=== PATIENT | female | born 1940 | race Caucasian/White ===

== ENCOUNTER 2018-02-19 14:24 | Inpatient (IN) | payer MEDICARE ==
[2018-02-19] MEDS ORDERED: ASPIRIN 81 MG TABLET, CHEWABLE PO ONE (14:44)
--- NOTE | 2018-02-19 15:03 | ER Document Report ---
ED Cardiac - General Mode of Arrival: Medic Information source: Patient TRAVEL OUTSIDE OF THE [place] IN LAST 30 DAYS: No <PEYTON MELENDEZ - Last Filed: 02/19/18 19:12> <DIANE GASTELUM - Last Filed: 02/19/18 20:26> - General Chief Complaint: Arrhythmia Stated Complaint: CHEST PAIN Time Seen by Provider: 02/19/18 14:52 Notes: 77 y.o female presents to the ED with SOB upon exertion and pedal edema. She reports that she went to the doctor in [place] for SOB and then went to Dr. Conley for an EKG when she was sent directly here for an abnormal EKG. Pt reports that she gets SOB regularly due to her smoking hx but since she quit smoking in 2003 her breathing has improved and has not been this bad in a while. She denies any CP but notes some tightness when lying flat or upon exertion. Pt denies needing to use oxygen at home. She denies any hx of Afib or CHF. She denies any previous stress test or heart catheterizations. (PEYTON MELENDEZ) - Related Data Allergies/Adverse Reactions: No Known Allergies Allergy (Unverified 02/19/18 18:13) Past Medical History - General Information source: Patient - Social History Smoking Status: Former Smoker Chew tobacco use (# tins/day): No Frequency of alcohol use: None Drug Abuse: None <PEYTON MELENDEZ - Last Filed: 02/19/18 19:12> - Social History Family History: CAD <DIANE GASTELUM - Last Filed: 02/19/18 20:26> Review of Systems - Review of Systems Constitutional: No symptoms reported EENT: No symptoms reported Cardiovascular: See HPI, Edema - bilateral pedal edema, Other - chest tightness. denies: Chest pain Respiratory: See HPI, Short of breath Gastrointestinal: No symptoms reported Genitourinary: No symptoms reported Female Genitourinary: No symptoms reported Musculoskeletal: No symptoms reported Skin: No symptoms reported Hematologic/Lymphatic: No symptoms reported Neurological/Psychological: No symptoms reported -: Yes All other systems reviewed and negative <PEYTON MELENDEZ - Last Filed: 02/19/18 19:12> Physical Exam <PEYTON MELENDEZ - Last Filed: 02/19/18 19:12> <DIANE GASTELUM - Last Filed: 02/19/18 20:26> - Vital signs Vitals: Temp Pulse Resp BP Pulse Ox 97.5 F 126 H 17 154/97 H 92 02/19/18 14:38 02/19/18 14:38 02/19/18 14:38 02/19/18 14:38 02/19/18 14:38 - Notes Notes: PHYSICAL EXAM GENERAL: Alert, interacts well. HEAD: Normocephalic, atraumatic. EYES: Pupils equal, round, and reactive to light. Extraocular movements intact. ENT: Oral mucosa moist, tongue midline. NECK: Full range of motion. Supple. Trachea midline. LUNGS: Slightly decreased air movement with rales. Tachypnic, appears SOB. No wheezes or rhonchi. HEART: tachycardic rate and irregular rhythm. No murmurs, gallops, or rubs. 1+ pitting edema bilaterally to 2 inches above the ankle. ABDOMEN: Soft, non-tender. Non-distended. Bowel sounds present in all 4 quadrants. No guarding, rebound, or rigidity. EXTREMITIES: Moves all 4 extremities spontaneously. No edema, radial and dorsalis pedis pulses 2/4 bilaterally. No cyanosis. NEUROLOGICAL: Alert and oriented x3. Normal speech. PSYCH: Normal affect, normal mood. (PEYTON MELENDEZ) Course - Laboratory Result Diagrams: 02/19/18 15:18 02/19/18 15:18 <PEYTON MELENDEZ - Last Filed: 02/19/18 19:12> - Laboratory Result Diagrams: 02/19/18 15:18 02/19/18 15:18 <DIANE GASTELUM - Last Filed: 02/19/18 20:26> - Re-evaluation Re-evalutation: 02/19/18 20:22 CBC unremarkable, INR slightly prolonged at 1.07, venous blood gas does not show any acidosis, CMP grossly unremarkable, troponin negative at 0.0280, proBNP elevated at 1800 and is in her lungs however chest x-ray does not show any infiltrate or pulmonary edema. I was concerned for possible pulmonary embolism. CTA of the chest was performed and does not show any pulmonary embolism. At this point I am not certain why the patient has new onset atrial fibrillation and shortness of breath and continuing hypoxia when she is off of oxygen which she has never previously needed. Now that I know she does not have a pulmonary embolism we will give Cardizem to try and control her rate since this does not appear to be a compensatory mechanism but may be triggered by the new onset congestive heart failure. Initial dose will be ordered at 20 mg IV. Discussed case with Dr. Prater who agrees to accept the patient to his service for hypoxia, shortness of breath, new onset atrial fibrillation and congestive heart failure. 02/19/18 20:25 Breathing treatment did not improve oxygenation. (DIANE GASTELUM) - Vital Signs Vital signs: Temp Pulse Resp BP Pulse Ox 98.1 F 126 H 25 H 161/108 H 93 02/19/18 15:15 02/19/18 14:38 02/19/18 20:01 02/19/18 20:01 02/19/18 20:00 - Laboratory Laboratory results interpreted by me: 02/19/18 02/19/18 15:18 15:18 Glucose 128 H Direct Bilirubin 0.5 H NT-Pro-B Natriuret Pep 1810 H - EKG Interpretation by Me Additional EKG results interpreted by me: 02/19/18 20:23 EKG shows atrial fibrillation with rapid ventricular response rate of 127, there are diffuse T-wave inversions 1, 2, aVF, lead III, V3 through V6 with associated ST segment depressions in V3 through V6, there is no ST segment elevations, slightly slow R-wave progression per my interpretation. 02/19/18 20:25 Repeat EKG shows atrial fibrillation at a rate of 111, continued T-wave inversions and ST segment depressions unchanged from prior EKG, no ST segment elevations, T-wave inversions are present in lead I, 2, 3, aVF, V2 through V6 per my interpretation. (DIANE GASTELUM) Critical Care Note - Critical Care Note Total time excluding time spent on procedures (mins): 45 <DIANE GASTELUM - Last Filed: 02/19/18 20:26> Discharge <PEYTON MELENDEZ - Last Filed: 02/19/18 19:12> - Discharge Admitting Provider: Hospitalist - [facility] Admitted: [facility] <DIANE GASTELUM - Last Filed: 02/19/18 20:26> - Discharge Clinical Impression: New onset atrial fibrillation, Hypoxia Congestive heart failure Qualifiers: Heart failure type: unspecified Heart failure chronicity: acute Qualified Code( s): I50.9 - Heart failure, unspecified Disposition: ADMITTED INPATIENT Referrals: JERZY MO FNP-C [Primary Care Provider] - Follow up as needed Scribe Attestation: 02/19/18 20:26 I personally performed the services described in the documentation, reviewed and edited the documentation which was dictated to the scribe in my presence, and it accurately records my words and actions. (DIANE GASTELUM) Scribe Documentation - Scribe Written by Shelby:: Shelby Ferrara [id number] 02/19/18 acting as scribe for :: Alley <PEYTON MELENDEZ - Last Filed: 02/19/18 19:12>
--- NOTE | 2018-02-19 15:16 | RADIOLOGY REPORT (SQ) ---
EXAM DESCRIPTION: CHEST SINGLE VIEW COMPLETED DATE/TIME: 02/19/2018 3:07 pm REASON FOR STUDY: cp COMPARISON: None. EXAM PARAMETERS: NUMBER OF VIEWS: One view. TECHNIQUE: Single frontal radiographic view of the chest acquired. RADIATION DOSE: NA LIMITATIONS: None. FINDINGS: LUNGS AND PLEURA: No opacities, masses or pneumothorax. No pleural effusion. MEDIASTINUM AND HILAR STRUCTURES: No masses. Contour normal. HEART AND VASCULAR STRUCTURES: Moderate to marked cardiomegaly. BONES: Osteoporotic. HARDWARE: None in the chest. OTHER: No other significant finding. IMPRESSION: Moderate to marked cardiomegaly without pleural effusions or pulmonary edema. TECHNICAL DOCUMENTATION: JOB ID: [id number] [employer]- All Rights Reserved Reading location - IP/workstation name: [email or web address]
[2018-02-19 15:35] LABS: ABSOLUTE LYMPHOCYTES (AUTO) 1.2 10^3/uL (0.5-4.7); ABSOLUTE MONOCYTES (AUTO) 0.5 10^3/uL (0.1-1.4); ABSOLUTE NEUT (AUTO) 4.5 10^3/uL (1.7-8.2); BASOPHILS % (AUTO) 0.4 % (0-2); EOSINOPHILS % (AUTO) 0.2 % (0-6); HEMATOCRIT 36.4 % (36.0-47.0); HEMOGLOBIN 12.5 g/dL (12.0-15.5); LYMPHOCYTES % (AUTO) 18.9 % (13-45); MEAN CORPUSCULAR HGB CONC 34.3 g/dL (32.0-36.0); MEAN CORPUSCULAR VOLUME 93 fl (80-97); MONOCYTES % (AUTO) 8.1 % (3-13); PLATELET COUNT 265 10^3/uL (150-450); RED CELL DISTRIBUTION WIDTH 13.6 % (11.5-14.0); SEGMENTED NEUTROPHILS % (AUTO) 72.4 % (42-78); TOTAL CELLS COUNTED % (AUTO) 100 %; VENOUS BLOOD HCO3 27.6 mmol/L (20-32); VENOUS BLOOD PCO2 46.5 mmHg (35-63); VENOUS BLOOD PH 7.39 (7.30-7.42); WHITE BLOOD COUNT 6.3 10^3/uL (4.0-10.5)
[2018-02-19 15:43] LABS: INTERNATIONAL RATION (INR) 1.07; PARTIAL THROMBOPLASTIN TIME 31.5 SEC (23.5-35.8); PROTHROMBIN TIME 14.4 SEC (11.4-15.4)
[2018-02-19 15:54] LABS: ALANINE AMINOTRANSFERASE 31 U/L (9-52); ALKALINE PHOSPHATASE 77 U/L (38-126); ANION GAP 13 (5-19); ASPARTATE AMINO TRANSFERASE 28 U/L (14-36); BILIRUBIN,DIRECT 0.5 mg/dL (0.0-0.4); BILIRUBIN,TOTAL 1.2 mg/dL (0.2-1.3); BLOOD UREA NITROGEN 12 mg/dL (7-20); CALCIUM 9.2 mg/dL (8.4-10.2); CARBON DIOXIDE 26 mmol/L (22-30); CHLORIDE 103 mmol/L (98-107); CREATINE KINASE 43 U/L (30-135); GLUCOSE 128 mg/dL (75-110); POTASSIUM 3.9 mmol/L (3.6-5.0)
[2018-02-19 16:07] LABS: CREATINE KINASE MB 1.94 ng/mL (<4.55); TROPONIN I 0.02 ng/mL
--- NOTE | 2018-02-19 18:05 | EKG REPORT ---
SEVERITY:- ABNORMAL ECG - ATRIAL FIBRILLATION, V-RATE 99-153 REPOL ABNRM SUGGESTS ISCHEMIA, DIFFUSE LEADS : Confirmed by: Patrick Garrett 19-Feb-2018 18:05:07
--- NOTE | 2018-02-19 18:05 | EKG REPORT ---
SEVERITY:- ABNORMAL ECG - ATRIAL FIBRILLATION REPOL ABNRM SUGGESTS ISCHEMIA, ANT-LAT LEADS : Confirmed by: Patrick Garrett 19-Feb-2018 18:04:58
--- NOTE | 2018-02-19 18:30 | RADIOLOGY REPORT (SQ) ---
EXAM DESCRIPTION: CTA CHEST COMPLETED DATE/TIME: 02/19/2018 6:09 pm REASON FOR STUDY: hypoxia, SOB, tachycardia COMPARISON: Chest x-ray 02/19/2018 TECHNIQUE: CT scan of the chest performed using helical scanning technique with dynamic intravenous contrast injection. Images reviewed with lung, soft tissue and bone windows. Reconstructed coronal and sagittal MPR images reviewed. Additional 3 dimensional post-processing performed to develop Maximal Intensity Projection images (WI P). All images stored on PACS. All CT scanners at this facility use dose modulation, iterative reconstruction, and/or weight based d osing when appropriate to reduce radiation dose to as low as reasonably achievable (ALARA). [facility]: Dose Right [facility]: CareDose [facility]: Dose Right [facility]: Teradose 4D [facility]: [place] CONTRAST TYPE AND DOSE: contrast/concentration: Isovue mg/ml; Total Contrast Delivered: 115.9 ml; T otal Saline Delivered: 100.1 ml Contrast bolus optimized for the pulmonary arteries. Not diagnostic for the aorta. RENAL FUNCTION: BUN 12 creatinine 0.64 RADIATION DOSE: CT Rad equipment meets quality standard of care and radiation dose reduction techniq ues were employed. CTDIvol: 19.8 - 29.8 mGy. DLP: 810 mGy-cm. . LIMITATIONS: None. FINDINGS: LUNGS AND PLEURA: Subsegmental atelectasis in the lung bases, left more than right. AORTA AND GREAT VESSELS: No aneurysm. Contrast bolus not optimized for the aorta. HEART: No pericardial effusion. Moderate to marked coronary artery calcifications. PULMONARY ARTERIES: No emboli visualized in the main pulmonary arteries or the segmental branches. HILAR AND MEDIASTINAL STRUCTURES: There are multiple nonspecific mediastinal lymph nodes. HARDWARE: None in the chest. UPPER ABDOMEN: No significant findings. Limited exam. THYROID AND OTHER SOFT TISSUES: No masses. No adenopathy. BONES: Compression changes of uncertain age in the mid and lower thoracic spine. 3D MIPS: Confirm above findings. OTHER: No other significant finding. IMPRESSION: 1. There is no evidence of pulmonary emboli. 2. Nonspecific mediastinal lymph nodes. 3. Compression changes of uncertain age in the mid and lower thoracic spine. COMMENT: Quality ID # [id number]: Final reports with documentation of one or more dose reduction techniques (e.g., Automated exposure control, adjustment of the mA and/or kV according to patient size, use of iterative reconstruction technique) TECHNICAL DOCUMENTATION: JOB ID: [id number] [employer]- All Rights Reserved Reading location - IP/workstation name: [email or web address]
[2018-02-19] MEDS ORDERED: ALBUTEROL SULFATE 0.083% NEB 2.5 MG/3 ML AMPUL NEB ONE (19:12)
[2018-02-19] MEDS ORDERED: DILTIAZEM HCL INJ 25 MG/5 ML VIAL IV ONE (19:55)
[2018-02-19] MEDS ORDERED: IPRATROPIUM BROMIDE 0.02% NEB 0.5 MG/2.5 ML AMPUL NEB SCH (20:30)
[2018-02-19 21:35] LABS: INTERNATIONAL RATION (INR) 1.11; PROTHROMBIN TIME 14.9 SEC (11.4-15.4)
[2018-02-19] MEDS ORDERED: CHLORPHENIRAMINE MALEATE 4 MG TABLET PO ONE (22:00)
[2018-02-19] MEDS ORDERED: ATORVASTATIN CALCIUM 40 MG TABLET PO SCH (22:00)
--- NOTE | 2018-02-19 22:40 | PDOC H&P ---
History of Present Illness Admission Date/PCP: 02/19/18 20:30 DONNY ESCOTO-C Patient complains of: Shortness of breath History of Present Illness: PAN COLON is a 77 year old female with a remote history of 45 years of tobacco and suspected COPD. Patient presents with several weeks of shortness of breath with exertion and lower extremity edema. Prompting to seek evaluation with primary care she is referred to sr. strategic sourcing manager Dr. Rosado. She is found to be in A. fib with RVR and referred to the emergency room for treatment she receives IV Cardizem, denies chest pain shortness of breath nausea vomiting and lying flat. She denies new medication, alcohol, heat or cold intolerance, sudden onset of cough, palpitations or chest pain. Past Medical History Medical History: None Pulmonary Medical History: Reports: Bronchitis, Chronic Obstructive Pulmonary Disease (COPD) Past Surgical History Past Surgical History: Reports: Cholecystectomy Social History Information Source: Patient Lives with: Alone Smoking Status: Former Smoker Number of Years Smokin Frequency of Alcohol Use: None Drugs: None - Advance Directive Resuscitation Status: Full Code Family History Family History: CAD Parental Family History Reviewed: Yes Children Family History Reviewed: Yes Sibling(s) Family History Reviewed.: Yes Medication/Allergy Home Medications: No Home Medications 02/19/18 Allergies/Adverse Reactions: No Known Allergies Allergy (Unverified 02/19/18 18:13) Review of Systems Constitutional: ABSENT: chills, fever(s), headache(s), weight gain, weight loss Eyes: ABSENT: visual disturbances Ears: ABSENT: hearing changes Cardiovascular: ABSENT: chest pain, dyspnea on exertion, edema, orthropnea, palpitations Respiratory: PRESENT: as per HPI, cough, dyspnea. ABSENT: hemoptysis, sputum Gastrointestinal: PRESENT: constipation. ABSENT: abdominal pain, diarrhea, hematemesis, hematochezia, nausea, vomiting Genitourinary: ABSENT: dysuria, hematuria Musculoskeletal: ABSENT: joint swelling Integumentary: ABSENT: rash, wounds Neurological: ABSENT: abnormal gait, abnormal speech, confusion, dizziness, focal weakness, syncope Psychiatric: ABSENT: anxiety, depression, homidical ideation, suicidal ideation Endocrine: ABSENT: cold intolerance, heat intolerance, polydipsia, polyuria Hematologic/Lymphatic: ABSENT: easy bleeding, easy bruising Physical Exam Vital Signs: Temp Pulse Resp BP Pulse Ox 97.6 F 119 H 22 H 133/83 H 91 L 02/19/18 22:10 02/19/18 22:10 02/19/18 22:10 02/19/18 22:10 02/19/18 22:10 Intake & Output 02/18/18 02/19/18 02/20/18 11:59 11:59 11:59 Weight 98.7 kg General appearance: PRESENT: no acute distress, well-developed, well-nourished Head exam: PRESENT: atraumatic, normocephalic Eye exam: PRESENT: conjunctiva pink, EOMI, PERRLA. ABSENT: scleral icterus Ear exam: PRESENT: normal external ear exam Mouth exam: PRESENT: moist, tongue midline Neck exam: ABSENT: carotid bruit, JVD, lymphadenopathy, thyromegaly Respiratory exam: PRESENT: clear to auscultation radha, crackles, prolonged expiratory phas, unlabored. ABSENT: rales, rhonchi, wheezes Cardiovascular exam: PRESENT: irregular rhythm, tachycardia. ABSENT: diastolic murmur, rubs, systolic murmur Pulses: PRESENT: normal dorsalis pedis pul Vascular exam: PRESENT: normal capillary refill GI/Abdominal exam: PRESENT: normal bowel sounds, soft. ABSENT: distended, guarding, mass, organolmegaly, rebound, tenderness Rectal exam: PRESENT: deferred Extremities exam: PRESENT: full ROM, +1 edema. ABSENT: calf tenderness, clubbing, pedal edema Neurological exam: PRESENT: alert, awake, oriented to person, oriented to place , oriented to time, oriented to situation, CN II-XII grossly intact. ABSENT: motor sensory deficit Psychiatric exam: PRESENT: appropriate affect, normal mood. ABSENT: homicidal ideation, suicidal ideation Skin exam: PRESENT: dry, intact, warm. ABSENT: cyanosis, rash Results Impressions: Chest X-Ray 02/19/18 14:44 IMPRESSION: Moderate to marked cardiomegaly without pleural effusions or pulmonary edema. Chest/Abdomen CTA 02/19/18 15:57 IMPRESSION: 1. There is no evidence of pulmonary emboli. 2. Nonspecific mediastinal lymph nodes. 3. Compression changes of uncertain age in the mid and lower thoracic spine. Assessment & Plan - Diagnosis (1) New onset atrial fibrillation Is this a current diagnosis for this admission?: Yes Plan: IMCU admission, IV Cardizem, full dose Lovenox, follow-up CBC, TSH, cardiac enzymes and echocardiogram (2) COPD (chronic obstructive pulmonary disease) Is this a current diagnosis for this admission?: Yes Plan: Xopenex and Atrovent, supplemental oxygen (3) Congestive heart failure Qualifiers: Heart failure type: unspecified Heart failure chronicity: acute Qualified Code(s): I50.9 - Heart failure, unspecified Is this a current diagnosis for this admission?: Yes Plan: Secondary to #1, 2D echo - Time Time Spent: 30 to 50 Minutes - Inpatient Certification Medical Necessity: Need Close Monitoring Due to Risk of Patient Decompensation
[2018-02-19] MEDS: ENOXAPARIN SODIUM INJ 80 MG/0.8 ML DISP.SYRIN SUBCUT SCH (22:54)
[2018-02-19] MEDS: FLUTICASONE NASAL SPRAY 50 MCG/SPRY 120 SPRAY/16 GM NASL SCH (22:55)
[2018-02-20] MEDS: LEVALBUTEROL HCL NEB 1.25 MG/3 ML AMPUL NEB SCH ×4 (02:18→19:59)
[2018-02-20 02:19] LABS: CREATINE KINASE MB 2.48 ng/mL (<4.55); TROPONIN I 0.025 ng/mL
[2018-02-20] MEDS: IPRATROPIUM BROMIDE 0.02% NEB 0.5 MG/2.5 ML AMPUL NEB SCH ×4 (02:19→19:59)
[2018-02-20 07:01] LABS: APPEARANCE,URINE CLEAR; BILIRUBIN,URINE NEGATIVE (NEGATIVE); COLOR,URINE YELLOW; GLUCOSE, URINE NEGATIVE (NEGATIVE); KETONES,URINE TRACE mg/dL (NEGATIVE); LEUKOCYTE ESTERASE,URINE NEGATIVE (NEGATIVE); NITRITE,URINE NEGATIVE (NEGATIVE); PROTEIN,URINE NEGATIVE (NEGATIVE); URINE SPECIFIC GRAVITY 1.034
[2018-02-20 08:12] LABS: HEMATOCRIT 33.8 % (36.0-47.0); HEMOGLOBIN 11.7 g/dL (12.0-15.5); MEAN CORPUSCULAR HEMOGLOBIN 32.7 pg (27.0-33.4); MEAN CORPUSCULAR HGB CONC 34.5 g/dL (32.0-36.0); MEAN CORPUSCULAR VOLUME 95 fl (80-97); PLATELET COUNT 227 10^3/uL (150-450); RED BLOOD COUNT 3.57 10^6/uL (3.72-5.28); RED CELL DISTRIBUTION WIDTH 13.7 % (11.5-14.0); WHITE BLOOD COUNT 6.7 10^3/uL (4.0-10.5)
[2018-02-20 08:28] LABS: ANION GAP 13 (5-19); BLOOD UREA NITROGEN 14 mg/dL (7-20); CALCIUM 9.1 mg/dL (8.4-10.2); CARBON DIOXIDE 24 mmol/L (22-30); CHLORIDE 104 mmol/L (98-107); CHOLESTEROL 142.03 mg/dL (0-200); CREATINE KINASE 55 U/L (30-135); GLUCOSE 122 mg/dL (75-110); POTASSIUM 4.1 mmol/L (3.6-5.0); SODIUM 141.2 mmol/L (137-145); TRIGLYCERIDES 106 mg/dL (<150)
[2018-02-20 08:39] LABS: DIRECT LDL 76 mg/dL (<100)
[2018-02-20 08:40] LABS: CREATINE KINASE MB 2.39 ng/mL (<4.55); TROPONIN I 0.025 ng/mL
[2018-02-20] MEDS: DOCUSATE SODIUM 100 MG CAPSULE PO SCH ×2 (10:11→17:40)
[2018-02-20] MEDS: ENOXAPARIN SODIUM INJ 80 MG/0.8 ML DISP.SYRIN SUBCUT SCH (10:11)
[2018-02-20] MEDS: ASPIRIN 81 MG TABLET, ENT COATED PO SCH (10:11)
[2018-02-20] MEDS: FLUTICASONE NASAL SPRAY 50 MCG/SPRY 120 SPRAY/16 GM NASL SCH ×2 (10:12→21:18)
[2018-02-20] MEDS ORDERED: DILTIAZEM HCL 120 MG CAP.SR.24H PO SCH ×2 (11:00→22:00)
[2018-02-20] MEDS ORDERED: DILTIAZEM HCL 120 MG CAP.SR.24H PO ONE (11:00)
[2018-02-20] MEDS: LISINOPRIL 5 MG TABLET PO SCH ×2 (11:19→23:38)
[2018-02-20 14:26] LABS: CREATINE KINASE MB 2.78 ng/mL (<4.55); TROPONIN I 0.021 ng/mL
[2018-02-20] MEDS: APIXABAN 5 MG TABLET PO SCH (17:40)
--- NOTE | 2018-02-20 17:50 | PDOC PROGRESS REPORT ---
Subjective Progress Note for:: 02/20/18 Subjective:: Patient feels a lot better she states. No chest pain at all and no difficulty breathing for the past few hours. No fever or chills, no dysuria, no abd pain. SHe is surprised by all of her new diagnoses. Reason For Visit: AFIB COPD Physical Exam Vital Signs: Temp Pulse Resp BP Pulse Ox 97.8 F 107 H 17 120/79 96 02/20/18 11:34 02/20/18 14:13 02/20/18 14:13 02/20/18 11:34 02/20/18 11:34 Intake & Output 02/19/18 02/20/18 02/21/18 06:59 06:59 06:59 Intake Total 242 Output Total 300 Balance -58 Weight 98.7 kg General appearance: PRESENT: no acute distress, morbidly obese Eye exam: ABSENT: conjunctival injection, scleral icterus Mouth exam: PRESENT: moist, tongue midline Respiratory exam: PRESENT: prolonged expiratory phas, wheezes. ABSENT: rales, rhonchi, tachypnea Cardiovascular exam: PRESENT: irregular rhythm, tachycardia GI/Abdominal exam: PRESENT: normal bowel sounds, soft. ABSENT: distended, tenderness Musculoskeletal exam: PRESENT: normal inspection Neurological exam: PRESENT: alert, awake, oriented to person, oriented to place , oriented to situation, CN II-XII grossly intact Psychiatric exam: PRESENT: appropriate affect Skin exam: PRESENT: dry, intact, warm Results Laboratory Results: 02/20/18 07:50 02/20/18 07:50 02/20/18 02/20/18 02/20/18 06:28 07:50 07:50 WBC 6.7 RBC 3.57 L Hgb 11.7 L Hct 33.8 L MCV 95 MCH 32.7 MCHC 34.5 RDW 13.7 Plt Count 227 Sodium 141.2 Potassium 4.1 Chloride 104 Carbon Dioxide 24 Anion Gap 13 BUN 14 Creatinine 0.66 Est GFR ( Amer) > 60 Est GFR (Non-Af Amer) > 60 Glucose 122 H Calcium 9.1 Triglycerides 106 Cholesterol 142.03 LDL Cholesterol Direct 76 VLDL Cholesterol 21.0 HDL Cholesterol 35 L Urine Color YELLOW Urine Appearance CLEAR Urine pH 5.0 Ur Specific [place] 1.034 Urine Protein NEGATIVE Urine Glucose (UA) NEGATIVE Urine Ketones TRACE H Urine Blood SMALL H Urine Nitrite NEGATIVE Ur Leukocyte Esterase NEGATIVE Urine WBC (Auto) 8 Urine RBC (Auto) 1 02/20/18 02/20/18 02/20/18 01:46 07:50 07:50 Creatine Kinase 55 CK-MB (CK-2) 2.48 2.39 Troponin I 0.025 0.025 02/20/18 13:25 Creatine Kinase CK-MB (CK-2) 2.78 Troponin I 0.021 Impressions: Chest X-Ray 02/19/18 14:44 IMPRESSION: Moderate to marked cardiomegaly without pleural effusions or pulmonary edema. Chest/Abdomen CTA 02/19/18 15:57 IMPRESSION: 1. There is no evidence of pulmonary emboli. 2. Nonspecific mediastinal lymph nodes. 3. Compression changes of uncertain age in the mid and lower thoracic spine. Assessment & Plan - Diagnosis (1) COPD (chronic obstructive pulmonary disease) Is this a current diagnosis for this admission?: Yes Plan: Very mild wheezing, will start doxycycline 100 po BID and cont bronchodilators, start steroids if she worsens. (2) Congestive heart failure Qualifiers: Heart failure type: unspecified Heart failure chronicity: acute Qualified Code(s): I50.9 - Heart failure, unspecified Is this a current diagnosis for this admission?: Yes Plan: possibly rate related due to uncontrolled afib, TTE pending, cards consulted. (3) New onset atrial fibrillation Is this a current diagnosis for this admission?: Yes Plan: Dr. Kennedy was consulted to sarah, diltiazem po started. Eliquis started. TTE pending. SHe is hemodynamically stable. - Time Time Spent with patient: 25-34 minutes - Inpatient Certification Based on my medical assessment, after consideration of the patient's comorbidities, presenting symptoms, or acuity I expect that the services needed warrant INPATIENT care.: Yes I certify that my determination is in accordance with my understanding of Medicare's requirements for reasonable and necessary INPATIENT services [42 CFR 412.3e].: Yes Medical Necessity: Need Close Monitoring Due to Risk of Patient Decompensation
--- NOTE | 2018-02-20 17:51 | XCELERA REPORT ---
[address] [address] Transthoracic Echocardiogram Report Name: PAN COLON Age: 77 yrs Gender: Female : 1940 Patient Status: Inpatient Patient Location: [address] [place] [address] Study Date: 02/20/2018 09:16 AM Height: 65 in Weight: 216 lb BSA: 2.0 m2 Procedure: A two-dimensional transthoracic echocardiogram with color flow and Doppler was performed. The study was technically difficult with many images being suboptimal in quality. Reason For Study: Atrial Fibrillation / COPD History: Atrial Fibrillation / COPD. Ordering Physician: KILLIAN PRESSLEY Performed By: Mary Rodgers Interpretation Summary The left ventricle is normal in size. There is normal left ventricular wall thickness. LV EF is > than 60% Left ventricular systolic function is normal. Doppler measurements suggest normal left ventricular diastolic function :- By Tissue Doppler. The right ventricle is not well visualized secondary to technical limitations Probaly mild RVE with normal RVEF. The right atrium is mildly dilated. Moderate to severe LA enlargement. There is no evidence of mitral valve prolapse. There is no vegetation seen on the mitral valve. There is no mitral valve stenosis. There is a moderate amount of mitral regurgitation There is no aortic valve stenosis There is no LVOT obstruction. No aortic regurgitation is present. There is no tricuspid stenosis. The inferior vena cava appeared normal and decreased < 50% with respiration (RAP 10-15 mmHg) There is a mild amount of tricuspid regurgitation There is moderate pulmonary hypertension by echo RVSP is 50 to 55 mm of Hg , with RA mean of 10 to15. There is no pericardial effusion. MMode/2D Measurements & Calculations RVDd: 3.4 cm LVIDd: 5.0 cm FS: 30.5 % Ao root diam: 2.3 cm IVSd: 0.94 cm LVIDs: 3.5 cm EDV(Teich): LVPWd: 0.94 cm 118.4 ml Ao root area: 4.1 cm2 ESV(Teich): LA dimension: 5.4 cm 50.0 ml EF(Teich): 57.8 % LA A2Cs: LA A4Cs: LA length: 6.9 cm LA Vol Index (BP): 41.4 cm2 32.2 cm2 80.2 ml/m2 LA Volume: 164.0 ml Doppler Measurements & Calculations MV E max ana: MV P1/2t max ana: Ao V2 max: LV V1 max P.7 cm/sec 102.2 cm/sec 155.1 cm/sec 6.5 mmHg MV P1/2t: 49.5 msec Ao max PG: LV V1 max: 9.6 mmHg 127.3 cm/sec MVA(P1/2t): 4.4 cm2 MV dec slope: 604.5 cm/sec2 MV dec time: 0.17 sec PA V2 max: TR max ana: 81.9 cm/sec 316.3 cm/sec PA max PG: TR max P.0 mmHg 2.7 mmHg Left Ventricle The left ventricle is normal in size. There is normal left ventricular wall thickness. LV EF is > than 60%. Left ventricular systolic function is normal. Doppler measurements suggest normal left ventricular diastolic function. :- By Tissue Doppler. Right Ventricle The right ventricle is not well visualized secondary to technical limitations. Probaly mild RVE with normal RVEF. Atria The right atrium is mildly dilated. Moderate to severe LA enlargement. Mitral Valve There is no evidence of mitral valve prolapse. There is no vegetation seen on the mitral valve. There is no mitral valve stenosis. There is a moderate amount of mitral regurgitation. Aortic Valve The aortic valve is trileaflet. The aortic valve opens well. There is no aortic valvular vegetation. There is no aortic valve stenosis. There is no LVOT obstruction. No aortic regurgitation is present. Tricuspid Valve There is no tricuspid stenosis. There is a mild amount of tricuspid regurgitation. There is moderate pulmonary hypertension by echo. RVSP is 50 to 55 mm of Hg , with RA mean of 10 to15. Pulmonic Valve There is no pulmonic valvular stenosis. There is no pulmonic valvular regurgitation. Great Vessels The aortic root is normal size. The inferior vena cava appeared normal and decreased < 50% with respiration (RAP 10-15 mmHg). Effusions There is no pericardial effusion. : KILLIAN PRESSLEY > Nidhi Hawthorne
[2018-02-20] MEDS: DOXYCYCLINE HYCLATE 100 MG TABLET PO SCH (21:11)
--- NOTE | 2018-02-20 21:14 | CONSULTATION REPORT E ---
Consultation Report NAME: PAN COLON : 1940 AGE: 77Y DATE: 02/20/2018 ROOM: 326 A TO: KENROY DUTTON M.D. FROM: KILLIAN PRESSLEY M.D. Requesting Physician REASON FOR CONSULTATION: The patient with shortness of breath, leg edema, and atrial fibrillation. HISTORY OF PRESENT ILLNESS: The patient is a 77-year-old female who states that she has not seen a doctor in many years and gives a history of several years of progressively increasing dyspnea, shortness of breath, and intermittent right ankle edema. The patient states for the past few weeks she has had increasing shortness of breath and leg edema and with orthopnea but no PND. The patient denies any cough, is not aware of wheezing. She denies any palpitations or awareness of any rapid beating of the heart. She states that she has never been diagnosed with hypertension but when she came into the emergency room her blood pressure was high. Most likely the patient has hypertension, which has been untreated. In view of the symptoms escalating for the past week she went to see her primary care physician who referred her to a concaving machine operator and who did an EKG and saw that the patient was in atrial fibrillation with rapid ventricular response, and the patient was sent over here. The patient is not aware of any palpitations or her heart beating fast or irregularly. There is no syncope or dizziness. The patient denies any fever, chills, or rigors. Again, there is no hemoptysis or cough or sputum production. PAST MEDICAL HISTORY: The patient probably has hypertension which is untreated. She denies diabetes mellitus. The patient has not seen a PMD for a long time. There are no TIA or CVA symptoms. The patient claims that she is not a diabetic. There is no history of headaches, migraines, or seizures. There is no history of chronic kidney disease. PAST SURGICAL HISTORY: Cholecystectomy. SOCIAL HISTORY: The patient has a 45 year pack history of smoking and quit smoking in 2003. ADVANCE DIRECTIVES: The patient is a full code. Her daughter is the surrogate healthcare decision maker. ALLERGIES: She has no known allergies. MEDICATIONS: 1. Albuterol/Ventolin 2.5 mg nebulizer treatment x1. 2. Atrovent 0.5 mg nebulizer treatment q.6 hours. 3. Xopenex 1.25 mg nebulizer treatment q.6 hours. 4. She did receive Cardizem at 20 mg IV x1. 5. Atorvastatin 40 mg p.o. at bedtime. 6. Aspirin 81 mg p.o. daily. 7. Lovenox 80 mg subcutaneously q.12 hours. 8. Flonase 2 sprays nasally q.12 hours. 9. Colace 100 mg p.o. b.i.d. HOME MEDICATIONS: Nil. REVIEW OF SYSTEMS: CONSTITUTIONAL: Complains of generalized fatigue and weakness, but no history of fever, chills, or rigors. HEAD: Denies headaches or head injury. No dizziness. EYES: No history of amblyopia or diplopia. No history of amaurosis fugax. EARS: No history of hearing loss. No history of tinnitus. No history of recurrent ear infections. NOSE: No history of hay fever. No history of nosebleeds. But state that she has allergies and uses nasal spray p.r.n. There are no nosebleeds. MOUTH: There is no altered taste sensation. There are no ulcers in the mouth. There is no bleeding from the gums. THROAT: She denies any odynophagia or dysphagia. There is no recurrent sore throats. SKIN: There are no skin rashes or skin lesions. There is no pruritus. There is no yellowish discoloration of the skin. There is no eczema. There is no psoriasis. NECK: No painless or painful swelling of the neck. No enlarged lymph nodes in the neck. No neck pain. LUNGS: Most likely the patient has COPD which has been not treated. This has been going on for a long time. Recent symptoms, although she states she is not aware of wheezing on examination her PMD told her that she was wheezing. She has some dry cough which is minimum, but no sputum production. There is no pleuritic chest pain. There is no sleep apnea. There is no pulmonary embolism. CARDIAC: Denies history of VT (myocardial infarction). No history of congestive heart failure. In the past, although she has had intermittent leg edema and leg swelling, at present it seems like the patient's symptomatology when she came in is consistent with a right heart failure. She has not known any symptoms of palpitations or rapid beating of the heart, but the patient is in atrial fibrillation with the left atrium being moderate to severely enlarged. Most likely this has been going on for sometime and the patient most likely has persistent or chronic atrial fibrillation. There is no syncope. There is no PND but there is orthopnea. There is no history of VT or anginal symptoms. RENAL: No history of chronic kidney disease. No history of hematuria, pyuria, or dysuria. No symptoms of UTI. ENDOCRINE: No history of diabetes mellitus. No history of thyroid disease. METABOLIC: Denies history of hyperlipidemia, but the patient's HDL cholesterol is low which is consistent with dyslipidemia with good LDL levels. At the present she has been placed on atorvastatin. She was not on this at home. There is no history of gout. The patient is moderately obese. MUSCULOSKELETAL: Denies arthritis or collagen vascular disease. CENTRAL NERVOUS SYSTEM: No history of TIA or CVA. No history of headaches, migraines, or seizures. No history of gait imbalance. No history of sleep apnea. PSYCHIATRIC: No history of anxiety or depression. No history of suicidal ideation. No history of homicidal ideation. VASCULAR: No history of calf or buttock claudication. No history of DVT. No history of cellulitis. HEMATOLOGICAL: No history of bleeding diathesis or clotting disorders. PHYSICAL EXAMINATION: GENERAL: On examination at present the patient does not appear to be in any acute distress. She is sitting up in the bed. She is moderately obese but well-groomed. VITAL SIGNS: She is afebrile with a temperature of 97.8 degrees Fahrenheit, pulse is 107 beats per minute, blood pressure 120/79, respirations are 16 per minute, O2 saturations are 96% on 2 liters nasal cannula. HEENT: Head is atraumatic, normocephalic. Eyes: Pupils are equal, round and regular, reactive to light and accommodation. Extraocular movements are normal. There is no conjunctival pallor. There is no scleral icterus. Ears: Tympanic membranes are intact, external auditory canals are clear. Nose: There is no deviated nasal septum, there is no inflammation of the nasal mucous membranes. Mouth: Mucous membranes of the mouth are moist, tongue is moist. There is no ulcer. There is no bleeding from the gum. Throat: There is no redness of the oropharynx. There are no exudates. SKIN: There are no skin rashes. There is no petechiae or ecchymosis. There are no skin lesions. NECK: Supple. There is no JVD. There is no lymphadenopathy. There is no goiter. Carotids are equal. There is no bruit. Trachea is central. LUNGS: Show way much diminished air entry, cannot hear wheezing at present. This may be because of the pretty much diminished air entry. There is prolonged expiration on inspection. On percussion there is hyperresonance. There are a few scattered rhonchi, but no definite wheezing. There are no rales of CHF. HEART: S1, S2 is heard. S1 is of variable intensity. There is no S3 gallop. There is no S4 gallop. There is a systolic murmur in the left sternal border and the apex. There is no rub. ABDOMEN: Soft, obese, nontender. There is no hepatosplenomegaly. Bowel sounds are well heard. There are no tender areas or masses. EXTREMITIES: Femorals are diminished. Femorals are deep. There are no femoral bruits. Leg pulses are diminished. There is trace to mild bilateral ankle edema. There is no cellulitis. There is no cyanosis or clubbing. There is no calf tenderness. CENTRAL NERVOUS SYSTEM: The patient is conscious, awake, alert and oriented x3 with no focal deficits. PSYCHIATRIC: The patient's judgment and insight are intact. Her affect is normal. DIAGNOSTICS: The patient's echocardiogram, please see report, which has interpreted by me shows that the patient's LV function is normal with normal wall motion and moderate pulmonary hypertension. The patient's EKG on admission shows atrial fibrillation with repolarization changes in diffuse leads. The patient's repeat EKG on 02/19/18 shows atrial fibrillation with diffuse repolarization abnormality. The patient's chest x-ray shows moderate to mild cardiomegaly without pleural effusion or pulmonary edema. The patient's chest, abdomen CTA shows no evidence of pulmonary emboli, nonspecific mediastinal lymph nodes, compression changes of uncertain age in the mid and lower thoracic spine. The patient's white count is 6700, hemoglobin is 11.7, hematocrit is 33.8, platelet count is 227,000. The patient's sodium is 121.2, potassium is 4.1, chloride 104, CO2 is 24. The patient's BUN is 14, creatinine is 0.63, GFR is greater than 60, glucose is 122, calcium is 9.1. The patient's cardiac enzymes are negative with a troponin of 0.022, 0.025, 0.025, 0.021. The patient's CPK and CPK-MBs are negative. The patient's HDL cholesterol is low at 35, LDL cholesterol is good at 76, her triglycerides are 106. The patient's TSH is 3.33. The patient's NT-proBNP is 1810. IMPRESSION: 1. Atrial fibrillation with somewhat fast ventricular response, but not unduly fast ? onset most likely the patient had persistent or even chronic atrial fibrillation. 2. COPD, acute exacerbation. 3. Moderate pulmonary hypertension by echocardiography. 4. Possible right heart failure. 5. Hypertension. 6. Dyslipidemia. RECOMMENDATIONS: I would start the patient on Cardizem CD 120 mg p.o. q.12 hours. We will stop the patient's Lovenox and start the patient on Eliquis 5 mg p.o. b.i.d. since the patient's corrected [id number] score is at least 4 points in view of the patient's age being 77 and the patient has hypertension and the patient is a female. I have discussed the risks and benefits of anticoagulation including that with Coumadin. I have discussed with the patient and the patient's daughter that Coumadin needs periodic blood tests to monitor the INR to make sure that the Coumadin levels are therapeutic and that dietary restrictions will be there and many drugs can interact with Coumadin. The plus point of Coumadin is if the patient should bleed the INR can be reversed by fresh frozen plasma and vitamin K. Discussed the new anticoagulation with the patient whereas the patient does not need to have blood tests done. She does not need to watch her diet since there are no dietary restrictions for this drug and most of the medications commonly prescribed do not interfere with that. But, I have also explained that if the patient should bleed there is no antidote. The patient has no bleeding diathesis or complications for chronic anticoagulation therapy. Hence, we will start that. We will also check the patient's hemoglobin A1c in view of the patient's blood sugar being slightly high. Also we will start the patient on lisinopril 2.5 mg p.o. q.12 hours. Continue the patient's respiratory treatment. If the patient does not improve would recommend steroids. At present there are no signs of infection or pneumonia. Hence, can hold off on antibiotics. Also would recommend that the patient be started on Advair Diskus inhalations and also Spiriva. TIME SPENT: Note, that the patient was seen at 11 a.m., 55 minutes spent on this patient with more than 50% of the time spent on direct patient care. Note, that the patient has been started on Eliquis 5 mg p.o. b.i.d. Note, the patient's medications have been reviewed and the medication adjusted. Discussed the case with the patient and the patient's daughter and also earlier with the hospitalist taking care of the patient. Echo findings were discussed with the patient and discussed with the attending physician. Note, medical decision making is of high complexity. Will follow with you. DICTATING PHYSICIAN: KENROY DUTTON M.D. [id number] DELICIA#: [id number] ID: [id number] JOB#: [id number] ACCT: [id number] cc:KENROY DUTTON M.D. >
[2018-02-20] MEDS: DILTIAZEM HCL 180 MG CAPSULE.CR PO SCH (21:17)
[2018-02-20] MEDS ORDERED: ATORVASTATIN CALCIUM 40 MG TABLET PO SCH (22:00)
[2018-02-20] MEDS ORDERED: ATORVASTATIN CALCIUM 20 MG TABLET PO SCH (22:00)
[2018-02-21] MEDS: LEVALBUTEROL HCL NEB 1.25 MG/3 ML AMPUL NEB SCH ×2 (02:04→08:33)
[2018-02-21] MEDS: IPRATROPIUM BROMIDE 0.02% NEB 0.5 MG/2.5 ML AMPUL NEB SCH ×2 (02:04→08:33)
[2018-02-21] MEDS: APIXABAN 5 MG TABLET PO SCH ×2 (09:48→17:18)
[2018-02-21] MEDS: DOXYCYCLINE HYCLATE 100 MG TABLET PO SCH (09:48)
[2018-02-21] MEDS: ASPIRIN 81 MG TABLET, ENT COATED PO SCH (09:49)
[2018-02-21] MEDS: DOCUSATE SODIUM 100 MG CAPSULE PO SCH ×2 (09:49→17:18)
[2018-02-21] MEDS: DILTIAZEM HCL 180 MG CAPSULE.CR PO SCH (09:49)
[2018-02-21] MEDS: FLUTICASONE NASAL SPRAY 50 MCG/SPRY 120 SPRAY/16 GM NASL SCH (09:50)
[2018-02-21] MEDS ORDERED: IPRATROPIUM/ALBUTEROL 0.5-2.5 MG/3 ML AMPUL NEB PRN ×2 (11:11→12:13)
[2018-02-21] MEDS ORDERED: FLUTICASONE/SALMETEROL DISKUS 250-50 MCG/DOSE IH ONE (13:00)
[2018-02-21 16:27] VITALS: BP 133/83
--- NOTE | 2018-02-21 16:57 | PDOC DISCHARGE SUMMARY ---
General - Admit/Disc Date/PCP Admission Date/Primary Care Provider: 02/19/18 20:30 JERZY MO, DATA ANALYTICS ANALYST-C Discharge Date: 02/21/18 - Discharge Diagnosis (1) COPD (chronic obstructive pulmonary disease) Is this a current diagnosis for this admission?: Yes Summary: Patient had been more and more dyspneic at home for unknown reasons. She does not see a doctor regularly. She did smoke for many years but has been tobacco free for at least several years. Finally her respiratory distress was so severe she came into the ER. Due to her tobacco history and wheezing she has been diagnosed with COPD and is responding well to bronchodilators asked her to speak with her regular doctor about a pulmonary rehab program. SHe will need PFTs as an outpatient. (2) Congestive heart failure Is this a current diagnosis for this admission?: Yes Summary: This is a new diagnosis for the patient. She has been seen by Dr. Hawthorne who will follow up with her in clinic. No need for diuresis at this time. She has been started on a low-dose of lisinopril for discharge. (3) New onset atrial fibrillation Is this a current diagnosis for this admission?: Yes Summary: She was admitted in rapid A. fib. She is now rate controlled on Cardizem 180 mg p.o. every 12 hours. She is also discharged on Eliquis for stroke prophylaxis due to high chads vasc score. She will follow-up with Dr. Hawthorne in his clinic. (4) Diabetes Is this a current diagnosis for this admission?: Yes Summary: Hemoglobin A1c is 6.5. She and I discussed the urgency of adhering to a diabetic type diet at this point and to further discuss this with her primary care doctor. We also discussed the importance of weight loss and regular exercise. Dietary counseling was provided. - Additional Information Resuscitation Status: Full Code Discharge Diet: Cardiac, Diabetic, Other (Comments) Discharge Activity: Balance Activity w/Rest, Energy Conservation, Other Prescriptions: Apixaban [Eliquis 5 mg Tablet] 5 mg PO BID 30 Days #60 tablet Aspirin [Ecotrin 81 mg EC Tablet] 81 mg PO DAILY 30 Days #30 tabec Atorvastatin Calcium [Lipitor 20 mg Tablet] 20 mg PO QHS 30 Days #30 tablet Diltiazem HCl [Cardizem Cd 180 mg Capsule] 180 mg PO Q12 30 Days #60 capsule.cr Doxycycline Hyclate [Vibramycin 100 mg Tablet] 100 mg PO Q12 4 Days #8 tablet Fluticasone/Salmeterol [Advair 250-50 Diskus 14 Dose/Diskus] 1 inh IH Q12 30 Days #1 inhaler Ipratropium/Albuterol Sulfate [Duoneb 3 ml Ampul] 3 ml NEB RTQ6HP PRN 15 Days # 30 vial.neb PRN Reason: Lisinopril [Prinivil 5 mg Tablet] 2.5 mg PO QHS 30 Days #30 tablet Home Medications: Apixaban [Eliquis 5 mg Tablet] 5 mg PO BID 30 Days #60 tablet 02/21/18 Aspirin [Ecotrin 81 mg EC Tablet] 81 mg PO DAILY 30 Days #30 tabec 02/21/18 Atorvastatin Calcium [Lipitor 20 mg Tablet] 20 mg PO QHS 30 Days #30 tablet 11/09 Diltiazem HCl [Cardizem Cd 180 mg Capsule] 180 mg PO Q12 30 Days #60 capsule.cr 02/21/18 Doxycycline Hyclate [Vibramycin 100 mg Tablet] 100 mg PO Q12 4 Days #8 tablet Fluticasone/Salmeterol [Advair 250-50 Diskus 14 Dose/Diskus] 1 inh IH Q12 30 Days #1 inhaler 02/21/18 Ipratropium/Albuterol Sulfate [Duoneb 3 ml Ampul] 3 ml NEB RTQ6HP PRN 15 Days # 30 vial.neb 02/21/18 Lisinopril [Prinivil 5 mg Tablet] 2.5 mg PO QHS 30 Days #30 tablet 02/21/18 History of Present Illness History of Present Illness: PAN COLON is a 77 year old female with a remote history of 45 years of tobacco and suspected COPD. Patient presents with several weeks of shortness of breath with exertion and lower extremity edema. Prompting to seek evaluation with primary care she is referred to identification printing machine setter Dr. Rosado. She is found to be in A. fib with RVR and referred to the emergency room for treatment she receives IV Cardizem, denies chest pain shortness of breath nausea vomiting and lying flat. She denies new medication, alcohol, heat or cold intolerance, sudden onset of cough, palpitations or chest pain. Hospital Course Hospital Course: Please see problem list Physical Exam Vital Signs: Temp Pulse Resp BP Pulse Ox 97.8 F 82 18 133/83 H 97 02/21/18 16:24 02/21/18 16:24 02/21/18 16:24 02/21/18 16:24 02/21/18 16:24 Intake & Output 02/20/18 02/21/18 02/22/18 06:59 06:59 06:59 Intake Total 242 1062 Output Total 300 1500 Balance -58 -438 Weight 98.7 kg 99.2 kg General appearance: PRESENT: no acute distress, cooperative, obese Eye exam: PRESENT: EOMI. ABSENT: scleral icterus Mouth exam: PRESENT: moist, tongue midline Respiratory exam: PRESENT: decreased breath sounds, prolonged expiratory phas, unlabored. ABSENT: rales, rhonchi, wheezes Pulses: PRESENT: normal radial pulses GI/Abdominal exam: PRESENT: normal bowel sounds, soft. ABSENT: distended, firm , guarding, tenderness Musculoskeletal exam: PRESENT: ambulatory, normal inspection Neurological exam: PRESENT: alert, awake, oriented to person, oriented to place , oriented to situation, CN II-XII grossly intact Psychiatric exam: PRESENT: appropriate affect. ABSENT: anxious Skin exam: PRESENT: dry, intact, warm Results Laboratory Results: 02/20/18 07:50 02/20/18 07:50 02/20/18 02/20/18 02/20/18 01:46 07:50 07:50 Creatine Kinase 55 CK-MB (CK-2) 2.48 2.39 Troponin I 0.025 0.025 02/20/18 13:25 Creatine Kinase CK-MB (CK-2) 2.78 Troponin I 0.021 Impressions: Chest X-Ray 02/19/18 14:44 IMPRESSION: Moderate to marked cardiomegaly without pleural effusions or pulmonary edema. Chest/Abdomen CTA 02/19/18 15:57 IMPRESSION: 1. There is no evidence of pulmonary emboli. 2. Nonspecific mediastinal lymph nodes. 3. Compression changes of uncertain age in the mid and lower thoracic spine. Qualifiers - * PATIENT BEING DISCHARGED WITH ANY OF THE FOLLOWING DIAGNOSIS: Heart Failure HF Pt being discharged on ACEI for LVEF less than 40%?: Yes HF Pt being discharged on ARBS for LVEF less than 40%?: No Reason(s) for not prescribing ARBS:: Medical Contraindication - pt is on EJ HF Pt with Afib discharged with Warfarin?: No Reason(s) for not prescribing Warfarin:: Medical Contraindication - pt is on eliquis HF Pt discharged on evidence-based Beta Eduard:: No Reason(s) for not prescribing evidence-based Beta Eduard:: Contraindicated - pt has low mild hypotension at this point with new EJ and calcium channel eduard, will be seen by cards as out patient Plan Time Spent: Greater than 30 Minutes
--- NOTE | 2018-02-21 21:25 | PROGRESS NOTE E ---
Progress Note NAME: PAN COLON : 1940 AGE: 77Y DATE: 02/21/2018 ROOM: 326 SUBJECTIVE: The patient states that her shortness of breath is much better. She still has some degree of orthopnea but no PND. There is no leg edema at present. She denies any chest pain. Her heart rate is fairly well-controlled with a heart rate in the 80s on current doses of Cardizem. The patient is tolerating Eliquis without any bleeding. The patient continues to be in atrial fibrillation. Review of the monitor shows that there is no ventricular arrhythmias seen. She states her shortness of breath has much improved and she is able to walk around the room without shortness of breath. There is no wheezing. There is no cough or sputum production. OBJECTIVE: GENERAL: On examination the patient is moderately obese, in no acute distress. She is well-groomed. VITAL SIGNS: She is afebrile with a temperature of 97.8 degrees Fahrenheit, pulse is 82 beats per minute, blood pressure 136/80, respirations are 18 per minute, O2 saturations are 97% on room air. HEENT: Head is atraumatic, normocephalic. Eyes: Pupils are equal, round and regular, reactive to light and accommodation. Extraocular movements are normal. There is no conjunctival pallor. There is no scleral icterus. ENT is negative. NECK: Supple. There is no JVD. There is no lymphadenopathy. There is no goiter. Carotids are equal. There is no bruit. Trachea is central. LUNGS: Show diminished air entry, prolonged expiration. There are no rhonchi, rales, or wheezing. On percussion there is hyperresonance throughout. There is no chest wall tenderness. HEART: S1, S2 is heard. S1 is of variable intensity. There is no S3 gallop. There is no S4 gallop. There is a systolic murmur in the left sternal border and the apex. There is no rub. ABDOMEN: Soft, nontender. There is no hepatosplenomegaly. Bowel sounds are well heard. There are no tender areas or masses. EXTREMITIES: Femorals are diminished. Femorals are deep. There are no femoral bruits. Leg pulses are diminished. There is no edema in the ankles or in the feet bilaterally. There is no cyanosis or clubbing. There is no cellulitis. There is no calf tenderness. CENTRAL NERVOUS SYSTEM: The patient is conscious, awake, alert and oriented x3 with no focal deficits. PSYCHIATRIC: The patient's judgment and insight are intact. The patient's affect is normal. DIAGNOSTICS: The patient's monitor strip shows that the patient is in atrial fibrillation. The patient's hemoglobin A1c is 6.5. Note that the patient's cardiac enzymes have been negative x4. IMPRESSION: 1. ATRIAL FIBRILLATION WITH A CONTROLLED VENTRICULAR RESPONSE. Note on ambulation the patient's heart rate lies between 80s-90s. Hence fairly well-controlled. Most likely this is chronic atrial fibrillation. Note continue the patient on Cardizem CD 180 mg p.o. b.i.d. This has been increased recently from 120 mg b.i.d. Continue Eliquis. I have given the patient 7 day samples of Eliquis to take, that is 5 mg p.o. b.i.d. from the office since the patient states on the weekends her pharmacy is not open. 2. COPD, ACUTE EXACERBATION NOW MUCH IMPROVED. 3. MODERATE PULMONARY HYPERTENSION BY ECHO. 4. POSSIBLE RIGHT HEART FAILURE, AT PRESENT COMPENSATED. 5. HYPERTENSION. 6. DYSLIPIDEMIA WITH A LOW HDL LEVEL. 7. ELEVATED HEMOGLOBIN A1C, MOST LIKELY THE PATIENT HAS DIABETES MELLITUS. RECOMMENDATION: The patient is stable. I have re-discussed the echo with the patient. Would recommend discharging the patient on Eliquis 5 mg p.o. b.i.d., aspirin enteric coated 81 mg p.o. daily, atorvastatin 20 mg p.o. at bedtime, diltiazem and hydrochlorothiazide (Cardizem CD) 180 mg p.o. q.12 hours. The patient is on Vibramycin 100 mg p.o. q.12 hours for a total of 4 days. She is on Advair Diskus 1 inhalation q.12 hours. She is also on DuoNeb 3 mL nebulizer treatment q.6 hours p.r.n. and lisinopril 2.5 mg p.o. at bedtime. The patient has been advised to have a diabetic diet and watch and restrict her intake of any sweets. We will have her primary care physician recheck the patient's hemoglobin A1c. At present I do not think she needs any medication for that since it is only marginally elevated, but the patient may require a glucose tolerance test as an outpatient. The patient desires to follow up with me. She has my phone number. We will follow the patient in the office. Later would recommend that the patient have an IV Lexiscan Cardiolite stress test in view of her multiple CAD risk factors. Note her medications have been reviewed, discussed with the attending physician on the case. The patient is stable to be discharged home. We will sign off. TIME SPENT: Note 40 minutes spent on this patient with more than 50% of the time spent on direct patient care. CODE STATUS: Note that the patient is a full code. She states her daughter is the surrogate healthcare decision maker. I had met the daughter yesterday and spoke to her about her mother. DICTATING PHYSICIAN: KENROY DUTTON M.D. [id number] PHY#: [id number] ID: [id number] JOB#: [id number] ACCT: [id number] cc: >
[2018-02-21] MEDS ORDERED: FLUTICASONE/SALMETEROL DISKUS 250-50 MCG/DOSE IH SCH (22:00)
[2018-02-21] MEDS ORDERED: LISINOPRIL 5 MG TABLET PO SCH (22:00)
== END 2018-02-21 18:04 | disposition home or self-care (01) | DRG 309 ==
LOC: ER 14:24 → EH 20:30 → 3S 22:07
PROVIDERS: ADMIT Internal Medicine; ATTEND Internal Medicine
PROC: 3E0F73Z Introduction of Anti-inflammatory into Respiratory Tract, Via Natural or Artificial Opening (ICD-10-PCS; principal; 2018-02-20)
DX: I48.1 Persistent atrial fibrillation (principal); J44.1 Chronic obstructive pulmonary disease with (acute) exacerbation; E11.9 Type 2 diabetes mellitus without complications; I50.9 Heart failure, unspecified; I11.0 Hypertensive heart disease with heart failure; I27.20 Pulmonary hypertension, unspecified; Z60.2 Problems related to living alone; E66.9 Obesity, unspecified; Z68.36 Body mass index [BMI] 36.0-36.9, adult; Z79.899 Other long term (current) drug therapy; Z90.49 Acquired absence of other specified parts of digestive tract; Z87.891 Personal history of nicotine dependence; Z82.49 Family history of ischemic heart disease and other diseases of the circulatory system
CPT/HCPCS: 36415; 71045; 71275; 80048; 80053; 80061; 81001; 82550; 82553; 82803; 83036; 83880; 84443; 84484; 85025; 85027; 85610; 85730; 93005; 93010; 93306; 94640; 94667; 94668; 99291; J1650; J3490

== ENCOUNTER → 2018-03-13 | Outpatient (CLI) | payer MEDICARE ==
--- NOTE | 2018-03-13 11:08 | RADIOLOGY REPORT (SQ) ---
EXAM DESCRIPTION: CT LTD RENAL STONE PROTOCOL ON COMPLETED DATE/TIME: 03/13/2018 10:57 am REASON FOR STUDY: HEMATURIA, UNSPECIFIED R31.9 HEMATURIA, UNSPECIFIED COMPARISON: None. TECHNIQUE: CT scan of the abdomen and pelvis performed without intravenous or oral contrast. Images reviewed with lung, soft tissue, and bone windows. Reconstructed coronal and sagittal MPR images revi ewed. All images stored on PACS. All CT scanners at this facility use dose modulation, iterative reconstruction, and/or weight based d osing when appropriate to reduce radiation dose to as low as reasonably achievable (ALARA). [facility]: Dose Right [facility]: CareDose [facility]: Dose Right [facility]: Teradose 4D [facility]: [employer] RADIATION DOSE: CT Rad equipment meets quality standard of care and radiation dose reduction techniq ues were employed. CTDIvol: 14.9 mGy. DLP: 729 mGy-cm.mGy. LIMITATIONS: None. FINDINGS: LOWER CHEST: No acute findings. NON-CONTRASTED LIVER, SPLEEN, ADRENALS: Evaluation limited by lack of IV contrast. No identified sign ificant masses. PANCREAS: No masses. No peripancreatic inflammatory changes. GALLBLADDER: Surgically absent. RIGHT KIDNEY AND URETER: Cysts. No suspicious masses. Assessment limited by lack of IV contrast. N o significant calcifications. No hydronephrosis or hydroureter. LEFT KIDNEY AND URETER: The cyst lower pole. No suspicious masses. Assessment limited by lack of IV contrast. No significant calcifications. No hydronephrosis or hydroureter. AORTA AND RETROPERITONEUM: No aneurysm. No retroperitoneal masses or adenopathy. BOWEL AND PERITONEAL CAVITY: Sigmoid diverticulosis. No obvious masses or inflammatory changes. No f ree fluid. APPENDIX: Normal. PELVIS, BLADDER, AND ABDOMINAL WALL:No abnormal masses. No free fluid. Bladder normal. BONES: No acute findings. Chronic appearing compression fractures T12, L1 and L4. OTHER: No other significant finding. IMPRESSION: No acute findings. COMMENT: Quality ID # [id number]: Final reports with documentation of one or more dose reduction techniques (e.g., Automated exposure control, adjustment of the mA and/or kV according to patient size, use of iterative reconstruction technique) TECHNICAL DOCUMENTATION: JOB ID: [id number] [employer]- All Rights Reserved Reading location - IP/workstation name: [email or web address]
== END ==
LOC: RAD 10:23
PROVIDERS: ATTEND Nurse Practitioner Family
DX: R31.9 Hematuria, unspecified (principal)
CPT/HCPCS: 76380

== ENCOUNTER 2018-12-24 15:58 | Emergency (ER) | payer MEDICARE ==
[2018-12-24] MEDS ORDERED: NORMAL SALINE 1000 ML 1,000 ML IV ONE (16:11)
--- NOTE | 2018-12-24 16:15 | ER Document Report ---
ED Medical Screen (RME) - General Chief Complaint: Abnormal Lab Results Stated Complaint: ABNORMAL LABS Time Seen by Provider: 12/24/18 16:08 Primary Care Provider: JERZY MO FNP-C [Primary Care Provider] - Follow up as needed Mode of Arrival: Wheelchair Information source: Patient Notes: Patient is a 78-year-old female who presents the emergency department from her primary care providers office with possible low hemoglobin. Patient reports that they did a fingerstick and found her hemoglobin to be 4.4. She reports dark red stools over the last few days. Patient is hypotensive on arrival but alert and oriented. Patient upgraded to AL 1, charge nurse made aware and called for bed. I have greeted and performed a rapid initial assessment of this patient. A comprehensive ED assessment and evaluation of the patient, analysis of test results and completion of the medical decision making process will be conducted by additional ED providers. Dictation of this chart was performed using voice recognition software; therefore, there may be some unintended grammatical errors. TRAVEL OUTSIDE OF THE [place] IN LAST 30 DAYS: No - Related Data Allergies/Adverse Reactions: No Known Allergies Allergy (Verified 12/24/18 15:59) Past Medical History Pulmonary Medical History: Reports: Hx Bronchitis, Hx COPD Renal/ Medical History: Denies: Hx Peritoneal Dialysis Past Surgical History: Reports: Hx Cholecystectomy - Immunizations History of Influenza Vaccine for 06/2017 - 11/2017 Season: No Physical Exam - Vital signs Vitals: Temp Pulse Resp BP Pulse Ox 97.9 F 78 18 79/37 L 100 12/24/18 16:10 12/24/18 16:10 12/24/18 16:10 12/24/18 16:10 12/24/18 16:10 Course - Vital Signs Vital signs: Temp Pulse Resp BP Pulse Ox 97.9 F 78 18 93/34 L 100 12/24/18 16:10 12/24/18 16:10 12/24/18 16:10 12/24/18 16:11 12/24/18 16:10 Doctor's Discharge - Discharge Referrals: JERZY MO FNP-C [Primary Care Provider] - Follow up as needed
[2018-12-24] MEDS ORDERED: NORMAL SALINE 250 ML IV PRN (16:28)
--- NOTE | 2018-12-24 16:28 | ER Document Report ---
ED General - General Chief Complaint: Abnormal Lab Results Stated Complaint: ABNORMAL LABS Time Seen by Provider: 12/24/18 16:08 Primary Care Provider: JERZY MO FNP-C [Primary Care Provider] - Follow up as needed Mode of Arrival: Wheelchair Notes: 78-year-old female with A. fib on Eliquis presents with worsening weakness and dark black stool for 3 weeks. Found to have hemoglobin 4.4 prehospital. Blood pressure 96 on ED arrival. No vomiting blood. No weight loss. History of CHF with leg edema. TRAVEL OUTSIDE OF THE [place] IN LAST 30 DAYS: No - Related Data Allergies/Adverse Reactions: No Known Allergies Allergy (Verified 12/24/18 15:59) Past Medical History - General Information source: Patient - Social History Smoking Status: Unknown if Ever Smoked Family History: CAD Patient has suicidal ideation: No Patient has homicidal ideation: No Pulmonary Medical History: Reports: Hx Bronchitis, Hx COPD Renal/ Medical History: Denies: Hx Peritoneal Dialysis Past Surgical History: Reports: Hx Cholecystectomy Review of Systems - Review of Systems Notes: REVIEW OF SYSTEMS GEN: Pallor and fatigue ENT: Denies sore throat, nasal discharge, ear pain EYES: Denies blurry vision, eye pain, discharge CV: Denies chest pain, palpitations, edema RESP: Denies cough, shortness of breath, wheezing GI: Dark stool MSK: Denies joint pain/swelling, edema, SKIN: Denies rash, skin lesions LYMPH: Denies swollen glands/lymph nodes NEURO: Denies headache, focal weakness or numbness, dizziness PSYCH: Denies depression, suicidal or homicidal ideation PHYSICAL EXAMINATION General: Weak elderly very pale Head: Atraumatic, normocephalic ENT: Mouth normal, oropharynx moist, no exudates or tonsillar enlargement Eyes: Conjunctiva normal, pupils equal, lids normal Neck: No JVD, supple, no guarding CVS: Regular regular rhythm, no murmurs Resp: No resp distress, equal and normal breath sounds bilaterally GI: Melena 2+ bilateral leg edema Back: No CVA or midline TTP Skin: No rash, warm Lymphatic: No lymphadeopathy noted Neuro: Awake, alert. Face symmetric. GCS 15. Physical Exam - Vital signs Vitals: Temp Pulse Resp BP Pulse Ox 97.9 F 78 18 79/37 L 100 12/24/18 16:05 12/24/18 16:05 12/24/18 16:05 12/24/18 16:05 12/24/18 16:05 Course - Re-evaluation Re-evalutation: 12/24/18 18:19 Presents with ongoing fatigue pallor and outpatient hemoglobin today of 4.4 for slow GI bleed. She is borderline hypotensive here in the ED. She is on Eliquis and is on a gloria xochilt for A. fib. Her heart rate is appropriate but may be depressed with a gloria blockade. I have ordered her an immediate transfusion, she was consented both verbally and on paper. We will run this at a slightly slower rate given that she has florid leg edema, however her lungs are clear at this point. We do not have any reversal agents here per the pharmacy. Patient was observed her pressure came up slowly. On repeat exam about an hour into her transfusion she is still clear in the lungs and will continue to transfusion. We will consider Lasix afterward based on her status at that time. I discussed with Dr. Alford hospitalist to [facility] for transfer for higher level of care, she will need GI. 12/24/18 20:33 Patient tolerated blood transfusion well. Pressure came to the 90s. She is asymptomatic with no dizziness or chest pain, so rather than give more blood in the weight. He was most recently reassessed at 8 PM. She was transferred to [facility]. She left the ED at 830 in stable condition. - Vital Signs Vital signs: Temp Pulse Resp BP Pulse Ox 98.4 F 82 22 H 95/54 L 100 12/24/18 20:09 12/24/18 19:15 12/24/18 20:01 12/24/18 20:00 12/24/18 19:15 - Laboratory Result Diagrams: 12/24/18 16:15 12/24/18 16:15 Laboratory results interpreted by me: 12/24/18 12/24/18 12/24/18 16:15 16:15 16:15 RBC 1.57 L Hgb 4.8 L* Hct 14.9 L* RDW 16.5 H PT 24.3 H Sodium 134.6 L Carbon Dioxide 21 L BUN 54 H Est GFR ( Amer) 56 L Est GFR (Non-Af Amer) 46 L Glucose 135 H Direct Bilirubin 0.6 H Crossmatch 12/24/18 16:15 RBC Hgb Hct RDW PT Sodium Carbon Dioxide BUN Est GFR ( Amer) Est GFR (Non-Af Amer) Glucose Direct Bilirubin Crossmatch See Detail - Diagnostic Test Radiology reviewed: Image reviewed, Reports reviewed - EKG Interpretation by Me EKG shows normal: Sinus rhythm Rate: Normal When compared to previous EKG there are: Previous EKG unavailable Critical Care Note - Critical Care Note Total time excluding time spent on procedures (mins): 34 - The above patient is critically ill. Not including procedures, but including direct re-evaluations, speaking with patient and/or consultants, interpreting results, and documenting, I spent the total amount of minute listed listed above on critical care time Discharge - Discharge Clinical Impression: GI bleeding Qualifiers: GI bleed type/associated pathology: melena Qualified Code(s): K92.1 - Melena Condition: Critical Disposition: [facility] [place] Referrals: JERZY MO FNP-C [Primary Care Provider] - Follow up as needed
[2018-12-24 16:51] LABS: MEAN CORPUSCULAR HEMOGLOBIN 30.2 pg (27.0-33.4); MEAN CORPUSCULAR VOLUME 95 fl (80-97); PLATELET COUNT 269 10^3/uL (150-450); RED BLOOD COUNT 1.57 10^6/uL (3.72-5.28); RED CELL DISTRIBUTION WIDTH 16.5 % (11.5-14.0); WHITE BLOOD COUNT 6.9 10^3/uL (4.0-10.5)
[2018-12-24 16:54] LABS: INTERNATIONAL RATION (INR) 2.07; PROTHROMBIN TIME 24.3 SEC (11.4-15.4)
[2018-12-24 17:08] LABS: ALANINE AMINOTRANSFERASE 28 U/L (9-52); ALBUMIN 3.6 g/dL (3.5-5.0); ALKALINE PHOSPHATASE 46 U/L (38-126); ANION GAP 10 (5-19); ASPARTATE AMINO TRANSFERASE 26 U/L (14-36); BILIRUBIN,DIRECT 0.6 mg/dL (0.0-0.4); BILIRUBIN,TOTAL 0.9 mg/dL (0.2-1.3); BLOOD UREA NITROGEN 54 mg/dL (7-20); CALCIUM 8.9 mg/dL (8.4-10.2); CARBON DIOXIDE 21 mmol/L (22-30); CHLORIDE 104 mmol/L (98-107); GLUCOSE 135 mg/dL (75-110); POTASSIUM 4.6 mmol/L (3.6-5.0); SODIUM 134.6 mmol/L (137-145); TOTAL PROTEIN 6.3 g/dL (6.3-8.2)
[2018-12-24 17:19] LABS: HEMATOCRIT 14.9 % (36.0-47.0); HEMOGLOBIN 4.8 g/dL (12.0-15.5)
[2018-12-24 17:24] LABS: ABSOLUTE LYMPHOCYTES# (MANUAL) 1.2 10^3/uL (0.5-4.7); ABSOLUTE MONOCYTES # (MANUAL) 0.7 10^3/uL (0.1-1.4); BASOPHILS % (MANUAL) 0 % (0-2); EOSINOPHILS % (MANUAL) 0 % (0-6); LYMPHOCYTES % (MANUAL) 18 % (13-45); MONOCYTES % (MANUAL) 10 % (3-13); SEGMENTED NEUTROPHILS % (MAN) 72 % (42-78); TOTAL CELLS COUNTED 100
[2018-12-24 17:25] LABS: ANISOCYTOSIS 1+; HYPOCHROMASIA 1+; POIKILOCYTOSIS SLIGHT; TOXIC GRANULATION SLIGHT
[2018-12-24 17:26] LABS: PLATELET COMMENT ADEQUATE
--- NOTE | 2018-12-24 19:52 | EKG REPORT ---
SEVERITY:- ABNORMAL ECG - ATRIAL FIBRILLATION VENTRICULAR PREMATURE COMPLEX RIGHT BUNDLE BRANCH BLOCK NONSPECIFIC ST-T CHANGES DIFFUSE : Confirmed by: Elroy Rosado MD 24-Dec-2018 19:52:07
[2018-12-24 20:25] VITALS: BP 95/54
== END 2018-12-24 20:29 | disposition short-term general hospital (02) ==
LOC: ER 15:58
DX: K92.1 Melena (principal); R53.1 Weakness; J44.9 Chronic obstructive pulmonary disease, unspecified; I48.91 Unspecified atrial fibrillation; Z90.49 Acquired absence of other specified parts of digestive tract; Z79.02 Long term (current) use of antithrombotics/antiplatelets
CPT/HCPCS: 93005; 99291; 86900; 86901; 36415; 36430; 86850; 85025; 85610; 80053; 86920; 93010; P9016